=== PATIENT | female | born 1955 ===

== ENCOUNTER 2017-11-28 07:26 | Day surgery (SDC) | payer MEDICAID ==
[2016-11-08 09:38] VITALS: BMI 28.2
[2017-11-28] MEDS ORDERED: Lactated Ringer's 1,000 ML IV ONE (07:51)
[2017-11-28] MEDS ORDERED: Sodium Chloride 0.9% 500 ML IV ONE (07:51)
[2017-11-28] MEDS ORDERED: Propofol 10 mg/ml Inj (20 ML) ONE (08:58)
[2017-11-28] MEDS ORDERED: Lidocaine 2% MPF (5 ml) Inj ONE (08:58)
[2017-11-28 09:37] VITALS: RESP 17
[2017-11-28 09:38] VITALS: BP 110/65; PULSE 95; TEMP 97.1; O2SAT 96
== END 2017-11-28 10:11 | disposition home or self-care (01) ==
LOC: H.ENDO 07:26
PROVIDERS: ATTEND Internal Medicine Gastroenterology
DX: R10.9 Unspecified abdominal pain (principal); J45.909 Unspecified asthma, uncomplicated; E11.9 Type 2 diabetes mellitus without complications; I10 Essential (primary) hypertension; K44.9 Diaphragmatic hernia without obstruction or gangrene; K29.50 Unspecified chronic gastritis without bleeding; K20.9 Esophagitis, unspecified
CPT/HCPCS: 43239; 82948; 88305; J2704; J7040

== ENCOUNTER 2017-12-24 04:32 | Emergency (ER) | payer MEDICAID ==
[2017-12-24 04:34] VITALS: BMI 28.2
[2017-12-24 04:42] VITALS: BP 137/85; PULSE 105; RESP 18; TEMP 97.9; O2SAT 97
[2017-12-24 05:09] LABS: SQUAMOUS EPITHIAL 1 /hpf (0-5); URINE BILIRUBIN NEGATIVE (NEGATIVE); URINE BLOOD MODERATE (NEGATIVE); URINE CLARITY SLIGHTY-CLOUDY (Clear); URINE COLOR YELLOW (YELLOW); URINE GLUCOSE (UA) >=500 mg/dL (Normal); URINE LEUKOCYTE ESTERASE MOD Leu/uL (Negative); URINE NITRATE NEGATIVE (NEGATIVE); URINE PROTEIN NEGATIVE (NEGATIVE); URINE UROBILINOGEN 0.2-1.0 mg/dL (0.2-1.0)
--- NOTE | 2017-12-24 05:23 | ED PDOC ---
HPI: Female Pain Time Seen by Provider: 12/24/17 04:44 Chief Complaint (Nursing): Female Genitourinary Chief Complaint (Provider): Female Genitourinary History Per: Patient History/Exam Limitations: no limitations Onset/Duration Of Symptoms: Days (x5) Current Symptoms Are (Timing): Still Present Additional Complaint(s): 62 year old female with a past medical history of diabetes and HTN, who presents to the ED complaining of vaginal irritation and dysuria x5 days. Patient reports recently finishing a course of antibiotics for H Pylori. Also reports self treating her symptoms with cranberry juice without relief. Denies back pain, fever, or chills. PMD: Juanjo Bajwa Past Medical History Reviewed: Historical Data, Nursing Documentation, Vital Signs Vital Signs: Last Vital Signs Temp 97.9 F 12/24/17 04:38 Pulse 105 H 12/24/17 04:38 Resp 18 12/24/17 04:38 BP 137/85 12/24/17 04:38 Pulse Ox 97 12/24/17 04:38 - Medical History PMH: Arthritis, Asthma (LAST ATTACK 1 YEAR AGO), Depression, Diabetes, HTN, Hypercholesterolemia Denies: Chronic Kidney Disease - Surgical History Surgical History: Endoscopy - Family History Family History: States: Unknown Family Hx - Home Medications Home Medications: Ambulatory Orders Medication Instructions Recorded Lisinopril/Hydrochlorothiazide 1 tab PO HS 03/19/16 [Lisinopril-Hctz 20-25 mg Tab] metFORMIN [glucOPHAGE] 500 mg PO TID 03/19/16 Sertraline [Zoloft] 100 mg PO DAILY 03/29/16 Benzocaine/Resorcinol [Vagisil 28 gm TP DAILY #1 cream..g. 12/24/17 Cream] Nitrofurantoin Macrocrystals 100 mg PO BID 5 Days cap 12/24/17 [Macrobid] - Allergies Allergies/Adverse Reactions: Allergies Allergy/AdvReac Type Severity Reaction Status Date / Time apple Allergy Mild VOMITING Verified 11/28/17 08:05 aspirin Allergy Mild RASH Verified 11/28/17 08:05 avocado Allergy Mild DIARRHEA Verified 11/28/17 08:05 Latex, Natural Rubber Allergy Mild ITCHING Verified 11/28/17 08:05 milk Allergy Mild RASH Verified 11/28/17 08:05 nut - unspecified Allergy Mild COUGH Verified 11/28/17 08:05 peanut Allergy Mild COUGH Verified 11/28/17 08:05 strawberry Allergy Mild RASH Verified 11/28/17 08:05 Review of Systems ROS Statement: Except As Marked, All Systems Reviewed And Found Negative Constitutional: Negative for: Fever, Chills Genitourinary Female: Positive for: Dysuria, Other (vaginal irritation) Musculoskeletal: Negative for: Back Pain Physical Exam - Reviewed Nursing Documentation Reviewed: Yes Vital Signs Reviewed: Yes - Physical Exam Appears: Positive for: Non-toxic, No Acute Distress Head Exam: Positive for: ATRAUMATIC, NORMAL INSPECTION, NORMOCEPHALIC Skin: Positive for: Normal Color, Warm, Dry. Negative for: Rash Eye Exam: Positive for: EOMI, Normal appearance, PERRL Neck: Positive for: Normal, Painless ROM, Supple Cardiovascular/Chest: Positive for: Regular Rate, Rhythm. Negative for: Murmur Respiratory: Positive for: Normal Breath Sounds. Negative for: Respiratory Distress Gastrointestinal/Abdominal: Positive for: Normal Exam, Bowel Sounds, Soft. Negative for: Tenderness Pelvic Exam: Positive for: Speculum Exam Normal, No Cerv. Motion Tender, Other ( Community Support Professional residential installer Mala). Negative for: External Exam Normal (mild irritation of skin), No Masses Back: Positive for: Normal Inspection. Negative for: L CVA Tenderness, R CVA Tenderness, Vertebral Tenderness Extremity: Positive for: Normal ROM. Negative for: Pedal Edema, Deformity Neurologic/Psych: Positive for: Alert, Oriented (x3). Negative for: Motor/ Sensory Deficits - ECG O2 Sat by Pulse Oximetry: 97 (RA) Pulse Ox Interpretation: Normal Medical Decision Making Medical Decision Making: Time: 04:45 Initial Impression: UTI and Vulvovaginal atrophy Initial Plan: --Chlamydia/GC RNA --Urine culture --Urinalysis --Reevaluation 545AM Pt. w/ UTI. Advised patient to f/u w/ [facility] for eval for atrophic vaginitis and need for estrogen cream. Return precautions discussed. Scribe Attestation: Documented by Bhavesh Van, acting as a scribe for Hemant Moore MD. Provider Scribe Attestation: All medical record entries made by the Scribe were at my direction and personally dictated by me. I have reviewed the chart and agree that the record accurately reflects my personal performance of the history, physical exam, medical decision making, and the department course for this patient. I have also personally directed, reviewed, and agree with the discharge instructions and disposition. Disposition - Clinical Impression Clinical Impression: Urinary tract infection - Disposition Referrals: Juanjo Bajwa MD [Family Provider] - Disposition: Routine/Home Disposition Time: 05:45 Condition: STABLE Prescriptions: Benzocaine/Resorcinol [Vagisil Cream] 28 gm TP DAILY #1 cream..g. Nitrofurantoin Macrocrystals [Macrobid] 100 mg PO BID 5 Days cap Instructions: Urinary Tract Infection, Adult (DC) Forms: [facility] (Bengali)
== END 2017-12-24 06:02 | disposition home or self-care (01) ==
LOC: H.ER 04:32
DX: N39.0 Urinary tract infection, site not specified (principal); E11.9 Type 2 diabetes mellitus without complications; E78.00 Pure hypercholesterolemia, unspecified; Z79.84 Long term (current) use of oral hypoglycemic drugs; I10 Essential (primary) hypertension

== ENCOUNTER 2018-03-21 08:34 | Emergency (ER) | payer MEDICAID ==
[2018-03-21 08:36] VITALS: BMI 32.7
[2018-03-21 08:37] VITALS: BP 147/91; PULSE 101; RESP 16; O2SAT 97
[2018-03-21 08:50] VITALS: TEMP 98
--- NOTE | 2018-03-21 09:03 | ED PDOC ---
HPI: Female Pain Time Seen by Provider: 03/21/18 08:46 Chief Complaint (Nursing): Female Genitourinary Chief Complaint (Provider): Female Genitourinary History Per: Patient History/Exam Limitations: no limitations Onset/Duration Of Symptoms: Waxing/Waning, Intermittent Episodes (2 months) Associated Symptoms: denies: Fever, Chills Additional Complaint(s): 62 y/o female with a history of diabetes and HTN presents to the ED for a vaginal cyst. Patient states it began 2 months ago through intermittent episodes associated with itchiness and discomfort. She takes one pill of Flucaine per day. Denies vaginal discharge, fever, or chills. Of note, patient had a past surgery for a mesh implant in her bladder. PMD: Aydee Richardson and [facility] Abnormal Vaginal Bleeding: No Past Medical History Reviewed: Historical Data, Nursing Documentation, Vital Signs Vital Signs: Last Vital Signs Temp 98 F 03/21/18 08:36 Pulse 101 H 03/21/18 08:36 Resp 16 03/21/18 08:36 BP 147/91 H 03/21/18 08:36 Pulse Ox 97 03/21/18 08:36 - Medical History PMH: Arthritis, Asthma, Depression, Diabetes, HTN, Hypercholesterolemia Denies: Chronic Kidney Disease - Surgical History Surgical History: Endoscopy - Family History Family History: States: Unknown Family Hx - Living Arrangements Living Arrangements: With Family - Social History Current smoker - smoking cessation education provided: No Ex-Smoker (has not smoked in the last 12 months): No Alcohol: None Drugs: Denies - Home Medications Home Medications: Ambulatory Orders Medication Instructions Recorded Lisinopril/Hydrochlorothiazide 1 tab PO HS 03/19/16 [Lisinopril-Hctz 20-25 mg Tab] metFORMIN [glucOPHAGE] 500 mg PO TID 03/19/16 Sertraline [Zoloft] 100 mg PO DAILY 03/29/16 Benzocaine/Resorcinol [Vagisil 28 gm TP DAILY #1 cream..g. 12/24/17 Cream] Nitrofurantoin Macrocrystals 100 mg PO BID 5 Days cap 12/24/17 [Macrobid] Mupirocin 2% Ointment [Bactroban 15 gm EXT TID #1 tube 03/21/18 Ointment] - Allergies Allergies/Adverse Reactions: Allergies Allergy/AdvReac Type Severity Reaction Status Date / Time apple Allergy Mild VOMITING Verified 11/28/17 08:05 aspirin Allergy Mild RASH Verified 11/28/17 08:05 avocado Allergy Mild DIARRHEA Verified 11/28/17 08:05 Latex, Natural Rubber Allergy Mild ITCHING Verified 11/28/17 08:05 milk Allergy Mild RASH Verified 11/28/17 08:05 nut - unspecified Allergy Mild COUGH Verified 11/28/17 08:05 peanut Allergy Mild COUGH Verified 11/28/17 08:05 strawberry Allergy Mild RASH Verified 11/28/17 08:05 Review of Systems ROS Statement: Except As Marked, All Systems Reviewed And Found Negative Constitutional: Negative for: Fever, Chills Genitourinary Female: Positive for: Other (vaginal cyst associated with itchiness and discomfort). Negative for: Vaginal Discharge Physical Exam - Reviewed Nursing Documentation Reviewed: Yes Vital Signs Reviewed: Yes - Physical Exam Appears: Positive for: Non-toxic, No Acute Distress Head Exam: Positive for: ATRAUMATIC, NORMOCEPHALIC Skin: Positive for: Normal Color, Warm. Negative for: Rash Eye Exam: Positive for: EOMI, Normal appearance, PERRL Neck: Positive for: Normal, Painless ROM, Supple Respiratory: Positive for: Normal Breath Sounds. Negative for: Respiratory Distress Pelvic Exam: Positive for: External Exam Normal, Other (mild erythema of the visible introitus, mild swelling to the super aspect of the right labia with an abrasion at the base) Neurologic/Psych: Positive for: Alert, Oriented (x3) - ECG O2 Sat by Pulse Oximetry: 97 (RA) Pulse Ox Interpretation: Normal Medical Decision Making Medical Decision Making: Time: 08:36 Impression: Labia infection Patient will be sent home with topical antibiotics and has been instructed to follow-up with course instructor as scheduled. Scribe Attestation: Documented by Russell Don acting as a scribe for Randee López MD. Scribe Attestation: All medical record entries made by the Scribe were at my direction and personally dictated by me. I have reviewed the chart and agree that the record accurately reflects my personal performance of the history, physical exam, medical decision making, and the department course for this patient. I have also personally directed, reviewed, and agree with the discharge instructions and disposition. Disposition - Clinical Impression Clinical Impression: Labia irritation - Patient ED Disposition Is Patient to be Admitted: No Doctor Will See Patient In The: Office Counseled Patient/Family Regarding: Diagnosis, Need For Followup, Rx Given - Disposition Referrals: Juanjo Bajwa MD [Family Provider] - Disposition: Routine/Home Disposition Time: 09:22 Condition: STABLE Prescriptions: Mupirocin 2% Ointment [Bactroban Ointment] 15 gm EXT TID #1 tube Instructions: Vulvitis Forms: [facility] (Syriac) - POA Present On Arrival: None
== END 2018-03-21 09:28 | disposition home or self-care (01) ==
LOC: H.ER 08:34
DX: N90.89 Other specified noninflammatory disorders of vulva and perineum (principal); E11.9 Type 2 diabetes mellitus without complications; E78.00 Pure hypercholesterolemia, unspecified; I10 Essential (primary) hypertension; Z79.84 Long term (current) use of oral hypoglycemic drugs